=== PATIENT | male | born 1960 | race Caucasian/White ===

== ENCOUNTER 2020-02-05 10:05 | Inpatient (IN) | payer OTHER, SELFPAY ==
[2020-02-05] VITALS (13 sets, daily range): BP systolic 101–142; BP diastolic 47–83; PULSE 68–85; RESP 16–26; TEMP 36.6–38.2; O2SAT 90–100
--- NOTE | ~2020-02-05 | XR_ITS ---
EXAMINATION: XR chest 1V portable INDICATION: COVID pneumonia, shortness of breath TECHNIQUE: Portable AP chest at 0704 hours COMPARISON: 02/05/2020 FINDINGS: The lung volumes are low. There are unchanged diffuse opacities throughout all lung zones. There is no pleural effusion or pneumothorax. The cardiomediastinal silhouette is stable. IMPRESSION: 1. . Diffuse lung disease, consistent with pneumonia and/or pulmonary edema and/or acute respiratory distress syndrome (ARDS). Reviewed, dictated and finalized at location A. WIRE INSULATOR IMPRESSION: 1. . Diffuse lung disease, consistent with pneumonia and/or pulmonary edema and /or acute respiratory distress syndrome (ARDS).
--- NOTE | ~2020-02-05 | XR_ITS ---
EXAMINATION: XR chest 1V portable INDICATION: Shortness of breath, increasing oxygen needs TECHNIQUE: Portable AP chest at 0401 hours COMPARISON: 02/08/2020 FINDINGS: Diffuse airspace opacities persist throughout all lung zones with slight interval improveme nt. The lung volumes are low. The cardiomediastinal silhouette is normal. No pleural effusion or pneu mothorax is identified. IMPRESSION: 1. Diffuse lung disease with slight improvement, consistent with pneumonia and/or pulmonary edema and /or acute respiratory distress syndrome (ARDS). Reviewed, dictated and finalized at location A. ZAG SPRING MACHINE OPERATOR IMPRESSION: 1. Diffuse lung disease with slight improvement, consistent with pneumonia and/ or pulmonary edema and/or acute respiratory distress syndrome (ARDS).
--- NOTE | ~2020-02-05 | XR_ITS ---
EXAMINATION: XR chest 1V portable INDICATION: Shortness of breath, COVID 19 TECHNIQUE: Portable AP chest at 0523 hours COMPARISON: 02/07/2020 FINDINGS: Diffuse airspace opacities persist throughout all lung zones with slight interval improveme nt. The lung volumes are low. There is no pleural effusion or pneumothorax. The cardiomediastinal pepper houette is normal. IMPRESSION: 1. Stable diffuse lung disease, consistent with pneumonia and/or pulmonary edema and/or acute respira tory distress syndrome (ARDS). Reviewed, dictated and finalized at location A. GATHERER IMPRESSION: 1. Stable diffuse lung disease, consistent with pneumonia and/or pulmonary nadya a and/or acute respiratory distress syndrome (ARDS).
--- NOTE | ~2020-02-05 | XR_ITS ---
EXAMINATION: XR chest 1V portable INDICATION: Shortness of breath, COVID positive TECHNIQUE: Portable AP chest at 1041 hours COMPARISON: 02/10/2019 FINDINGS: There are diffuse airspace opacities throughout all lung zones. No pleural effusion or pneu mothorax is identified. The cardiomediastinal silhouette is stable. The visualized osseous structures are unremarkable. IMPRESSION: 1. Diffuse airspace opacities throughout all lung zones, compatible with COVID 19 pneumonia. Reviewed, dictated and finalized at location A.
--- NOTE | ~2020-02-05 | XR_ITS ---
EXAMINATION: XR chest 1V portable INDICATION: Respiratory failure TECHNIQUE: Portable AP chest at 0549 hours COMPARISON: 02/09/2020 FINDINGS: Diffuse airspace opacities persist throughout all lung zones with worsening in the midlung zones. No pleural effusion or pneumothorax is identified. The cardiomediastinal silhouette is normal. The lung volumes are low. IMPRESSION: 1. Diffuse lung disease with worsening in the midlung zones, consistent with pneumonia and/or pulmona ry edema and/or acute respiratory distress syndrome (ARDS). Reviewed, dictated and finalized at location A. MOTIVE TECHNICIAN INSTRUCTOR IMPRESSION: 1. Diffuse lung disease with worsening in the midlung zones, consistent with pn eumonia and/or pulmonary edema and/or acute respiratory distress syndrome (ARDS ).
--- NOTE | ~2020-02-05 | XR_ITS ---
EXAMINATION: XR chest 1V portable INDICATION: Respiratory failure TECHNIQUE: Portable AP chest at 0530 hours COMPARISON: 02/10/2020 FINDINGS: Diffuse airspace opacities persist throughout all lung zones without significant change. Th ere is no pleural effusion or pneumothorax. The cardiomediastinal silhouette is normal. The lung volu mes remain low. IMPRESSION: 1. Stable diffuse lung disease, consistent with pneumonia and/or pulmonary edema and/or acute respira tory distress syndrome (ARDS). Reviewed, dictated and finalized at location A. CARE SALES EXECUTIVE IMPRESSION: 1. Stable diffuse lung disease, consistent with pneumonia and/or pulmonary nadya a and/or acute respiratory distress syndrome (ARDS).
[2020-02-05 11:11] LABS: Basophils Percent Auto 0.2 % (0.2-1.2); Hematocrit 28.9 % (42.0-52.0); Hemoglobin 9.8 g/dL (14.0-18.0); Immature Granulocyte Absolute 0.02 K/mm3 (0.00-0.031); Immature Granulocyte Percent A 0.4 % (0-0.5); Lymphocytes Absolute Auto 0.63 K/mm3 (0.9-3.2); Lymphocytes Percent Auto 12.8 % (18.3-44.2); Mean Corpuscular HGB Conc 33.9 g/dl (32-36); Mean Corpuscular Volume 100.3 fl (80-100); Mean Platelet Volume 9.9 fl (7.4-10.4); Monocytes Absolute Auto 0.5 K/mm3 (0.1-0.6); Monocytes Percent Auto 10.2 % (2.6-8.5); Neutrophils Absolute Auto 3.8 K/mm3 (1.3-6.7); Neutrophils Percent Auto 76.4 % (45.5-73.1); Platelet Count Result 173 k/mm3 (150-375); Red Blood Count 2.88 M/mm3 (4.6-6.20); Red Cell Distribution Width 14.5 % (11.5-14.5); White Blood Count 4.9 K/mm3 (4.5-10.0)
[2020-02-05 11:20] LABS: Prothrombin Time 12.9 Seconds (11.1-14.7)
[2020-02-05 11:21] LABS: Partial Thromboplastin Time 35.9 SECONDS (22.3-36.8)
[2020-02-05 11:24] LABS: Base Excess ABG 6.2 mEq/l (+/-2.0); Carboxyhemoglobin 0.2 % THb (0-2.0); Fractional Inspired Oxygen 100 %; HCO3 ABG 29.1 mEq/l (22.0-26.0); Methemoglobin ABG 0.5 %THb (0-1.5); Oxygen Content ABG 13.7 %vol (16.0-22.0); Oxygen Saturation ABG 90.8 % (95.0-100.0); Oxyhemoglobin 87.6 % THb (90.0-100.0); PCO2 ABG 35.6 mmHg (35.0-45.0); PO2 ABG 52.4 mmHg (80.0-100.0); PO2 FiO2 Ratio Arterial Blood 0.52 %; Reduced Hemoglobin 11.7 %THb (0-5.0); Total Hemoglobin 11.1 g/dL (12.0-18.0)
[2020-02-05 11:25] LABS: Lactic Acid Reflex 1.3 mmol/L (0.7-2.1)
[2020-02-05 11:26] LABS: Lactate Dehydrogenase 888 U/L (313-618)
[2020-02-05 11:27] LABS: Device NON-REBREATHER MASK; Modified Allen's Test Pass; Site Drawn RIGHT RADIAL
--- NOTE | 2020-02-05 11:42 | ED.GENADULT ---
HPI - General Adult General Chief complaint: Shortness of Breath/Dyspnea <PAPITO Ordonez Last Filed: 02/05/20 12:38> Stated complaint: lethargic/fever <PAPITO Ordonez Last Filed: 02/05/20 12:38> Time Seen by Provider: 02/05/20 10:16 <PAPITO Ordonez Last Filed: 02/05/20 12:38> Source: patient and EMS <PAPITO Ordonez Last Filed: 02/05/20 12:38> Mode of arrival: EMS <PAPITO Ordonez Last Filed: 02/05/20 12:38> Limitations: clinical condition <PAPITO Ordonez Last Filed: 02/05/20 12:38> History of Present Illness HPI narrative: Patient is a 60-year-old male who presents from shelter Covid positive brought in for weakness had half his dialysis treatment yesterday on arrival patient has not able to answer questions appropriately is oriented to self patient is a full code on arrival is coughing presents with oxygen on was placed on a nonrebreather by EMS due to hypoxemia. Patient on arrival is chronically ill-appearing and in no distress <PAPITO Ordonez Last Filed: 02/05/20 12:38> Related Data Home medications: Home Medications Medication Instructions Recorded Confirmed atorvastatin 02/05/20 02/05/20 docusate sodium PO 02/05/20 ergocalciferol (vitamin D2) 1,250 mcg PO WEEKLY 02/05/20 02/05/20 levothyroxine 02/05/20 losartan 02/05/20 polyethylene glycol 3350 [Miralax] 02/05/20 sevelamer carbonate 02/05/20 <PAPITO Ordonez Last Filed: 02/05/20 12:38> Allergies/adverse reactions: Allergies Allergy/AdvReac Type Severity Reaction Status Date / Time No Known Allergies Allergy Verified 02/05/20 11:32 <PAPITO Ordonez Last Filed: 02/05/20 12:38> Review of Systems Review of Systems: ROS unobtainable: Yes unobtainable due to medical condition <PAPITO Ordonez Last Filed: 02/05/20 12:38> PMFSH Past Medical History Medical History: Medical History Anxiety Arthritis Congestive heart failure COPD (chronic obstructive pulmonary disease) Depression <Andrew Chisholm PA-C - Last Filed: 02/05/20 12:38> Social History Social History: Social History (Updated 02/05/20 @ 12:33 by Andrew Chisholm PA-C) Smoking status: Smoker, status unknown <Andrew Chisholm PA-C - Last Filed: 02/05/20 12:38> Exam Narrative: Exam Narrative: GENERAL: ill-appearing, well-nourished, and in no acute distress. HEAD: Normocephalic, atraumatic. EYES: PERRLA and EOMI. ENT: Nares clear, no rhinorrhea or epistaxis. Mucous membranes moist. CHEST: Clear to auscultation. No respiratory distress. No wheezes rales or rhonchi HEART: Regular rate and rhythm. No murmur heard. Normal peripheral pulses. ABDOMEN: Soft, nontender, nondistended. EXTREMITIES: Normal range of motion. No edema. Okay thank you let us take some of this Bilateral BKA SKIN: Warm, dry, no rash. NEURO: No focal deficits. Alert and oriented to self. letter letter supposedly to ill-appearing <Andrew Chisholm PA-C - Last Filed: 02/05/20 12:38> Course Course Emergency Course: Patient will be placed in hospital due to COVID-19 oxygen requirements with pneumonia will be consulted by nephrology <Andrew Chisholm PA-C - Last Filed: 02/05/20 12:38> INSURANCE ADMINISTRATIVE ASSISTANT/PA Physician Supervision For this patient encounter, I reviewed the INSURANCE ADMINISTRATIVE ASSISTANT or PA documentation, treatment plan, and medical decision making; and I had qxif-nw-vady time with this patient. <Kenize Lozada MD - Last Filed: 02/05/20 12:12> Consultations Consultation #1: Discussed case with nephrology who will consult on patient as well as the hospitalist who has agreed to accept the patient <Andrew Chisholm PA-C - Last Filed: 02/05/20 12:38> Vital Signs Vital signs: Vital Signs Temperature 38.2 C H 02/05/20 10:15 Pulse Rate 83 02/05/20 10:15 Respiratory Rate 24 H 01/07
[2020-02-05 12:14] LABS: Alanine Aminotransferase 30 U/L (4-50); Alkaline Phosphatase 79 U/L (38-126); Anion Gap 12 mmol/L (8-16); Aspartate Amino Transferase 126 U/L (17-59); Bilirubin,Total 0.6 mg/dL (0.2-1.3); Blood Urea Nitrogen 45 mg/dL (9-20); CRP 30.8 mg/dL (<1.0); Calcium 8.2 mg/dL (8.4-10.2); Carbon Dioxide 37 mmol/L (22-30); Chloride 86 mmol/L (98-107); Estimated Glomerular Filt Rate 9; Glucose 155 mg/dL (75-110); Potassium 3.2 mmol/L (3.4-5.0); Sodium 135 mmol/L (137-145)
--- NOTE | 2020-02-05 13:18 | ECG_ITS ---
Measurements Intervals [place] Rate: 84 P: 4 IL: 158 QRS: -29 QRSD: 94 T: -15 QT: 385 QTc: 457 Interpretive Statements SINUS RHYTHM VENTRICULAR PREMATURE COMPLEX BORDERLINE ST-T WAVE ABNORMALITY- INF/HIGH LAT LEADS BASELINE ARTIFACT- I, II, III, AVR, AVL, AVF, V1-V6 BORDERLINE ECG Electronically Signed On 02-05-2020 13:49:24 CDT by Pancho Carvajal D.O.
--- NOTE | 2020-02-05 13:40 | PC.NURSE ---
Pt admitted to room ICU 6 from ED, no belongings sent with patient. Pt oriented to ICU room, alert to self only. VSS, sats 95% on 5L NC. Droplet precautions maintained.
[2020-02-05 16:54] LABS: Glucose Point of Care 117 (65-105)
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
[2020-02-05] MEDS: DEXAMETHASONE SOD PHOS INJ 4 MG/ML VIAL 6 MG IV PUSH (17:58)
[2020-02-05] MEDS: HEPARIN SODIUM 5,000 UNITS/ML VIAL 5000 UNITS SUB-Q (21:10)
[2020-02-05] MEDS: FAMOTIDINE 20 MG/2 ML VIAL IV PUSH (21:10)
[2020-02-05 21:23] LABS: Glucose Point of Care 179 (65-105)
[2020-02-06] VITALS (14 sets, daily range): BP systolic 113–142; BP diastolic 49–96; PULSE 60–86; RESP 17–26; TEMP 36.6–36.8; O2SAT 88–99
[2020-02-06 05:08] LABS: Basophils Percent Auto 0.2 % (0.2-1.2); Hematocrit 27.9 % (42.0-52.0); Hemoglobin 9.2 g/dL (14.0-18.0); Immature Granulocyte Absolute 0.03 K/mm3 (0.00-0.031); Immature Granulocyte Percent A 0.5 % (0-0.5); Lymphocytes Absolute Auto 0.59 K/mm3 (0.9-3.2); Lymphocytes Percent Auto 10.6 % (18.3-44.2); Mean Corpuscular Hemoglobin 32.9 pg (26-34); Mean Corpuscular Volume 99.6 fl (80-100); Mean Platelet Volume 10.1 fl (7.4-10.4); Monocytes Absolute Auto 0.3 K/mm3 (0.1-0.6); Monocytes Percent Auto 5.7 % (2.6-8.5); Neutrophils Absolute Auto 4.6 K/mm3 (1.3-6.7); Platelet Count Result 196 k/mm3 (150-375); Red Cell Distribution Width 14.3 % (11.5-14.5); White Blood Count 5.6 K/mm3 (4.5-10.0)
[2020-02-06] MEDS: LEVOTHYROXINE SODIUM 25 MCG TABLET PO (05:13)
[2020-02-06 05:27] LABS: D Dimer 2.18 ug/mL (<0.48)
[2020-02-06 05:40] LABS: Anion Gap 15 mmol/L (8-16); Blood Urea Nitrogen 60 mg/dL (9-20); Calcium 7.6 mg/dL (8.4-10.2); Carbon Dioxide 34 mmol/L (22-30); Chloride 85 mmol/L (98-107); Estimated Glomerular Filt Rate 7; Glucose 270 mg/dL (75-110); Lactate Dehydrogenase 836 U/L (313-618); Potassium 3.5 mmol/L (3.4-5.0); Sodium 134 mmol/L (137-145)
[2020-02-06 06:27] LABS: CRP 34.8 mg/dL (<1.0)
[2020-02-06 06:29] LABS: Hemoglobin A1C 7.1 % (<5.7)
[2020-02-06] MEDS: DEXAMETHASONE SOD PHOS INJ 4 MG/ML VIAL 6 MG IV PUSH (07:49)
[2020-02-06] MEDS: FAMOTIDINE 20 MG/2 ML VIAL IV PUSH ×2 (07:49→20:16)
[2020-02-06] MEDS: HEPARIN SODIUM 5,000 UNITS/ML VIAL 5000 UNITS SUB-Q ×2 (07:50→20:15)
[2020-02-06] MEDS: LOSARTAN POTASSIUM 25 MG TABLET PO (07:50)
[2020-02-06] MEDS: SEVELAMER CARBONATE 800 MG TABLET PO ×3 (07:50→17:11)
[2020-02-06] MEDS: polyethylene glycoL 3350 17 GM POWD.PACK PO (07:50)
[2020-02-06] MEDS: DOCUSATE SODIUM 100 MG CAPSULE PO (07:50)
[2020-02-06] MEDS: ATORVASTATIN 40 MG TABLET PO (07:50)
[2020-02-06 08:46] LABS: Ferritin > 2000.00 ng/mL (11.1-264)
[2020-02-06] MEDS: INSULIN ASPART (*BKC) 100 UNITS/ML SUB-Q ×3 (08:55→17:10)
[2020-02-06 09:13] LABS: Glucose Point of Care 257 (65-105)
--- NOTE | 2020-02-06 09:48 | PM.CNNEP ---
Assessment and Plan Assessment and plan (1) End-stage renal disease on hemodialysis: Code(s): N18.6 - End stage renal disease; Z99.2 - Dependence on renal dialysis Status: Acute Assessment and Plan: the patient is end-stage renal disease. He is due for dialysis tomorrow. Will try to keep as much fluid off as possible to maintain oxygen saturations PICC (2) Acute respiratory failure with hypoxia: Code(s): J96.01 - Acute respiratory failure with hypoxia Status: Acute Assessment and Plan: patient has hypoxia. He is on high-flow oxygen. (3) Pneumonia due to COVID-19 virus: Code(s): U07.1 - COVID-19; J12.89 - Other viral pneumonia Status: Acute Assessment and Plan: The patient has COVID-19. He is getting Dexamethasone. He is on oxygen and supportive care. (4) Type 2 diabetes mellitus: Code(s): E11.9 - Type 2 diabetes mellitus without complications Status: Acute Assessment and Plan: He is getting Accu-Cheks and sliding-scale insulin (5) Hypothyroidism: Code(s): E03.9 - Hypothyroidism, unspecified Status: Acute Assessment and Plan: he is on levothyroxine (6) Hypertension: Code(s): I10 - Essential (primary) hypertension Status: Acute Assessment and Plan: blood pressure is under good control with his current medications (7) Erythropoietin deficiency anemia: Code(s): D63.1 - Anemia in chronic kidney disease Status: Acute Assessment and Plan: he will get Epogen. History of Present Illness Reason for Consult Consult date: 02/06/20 Chief Complaint Chief complaint: Increasing shortness of breath, COVID positive. History of Present Illness Narrative: Pedro is a very pleasant 60-year-old gentleman who has end-stage renal disease on dialysis 3 times a week, cognitive to impairment, hypothyroidism, hypertension, vitamin-D deficiency, renal osteodystrophy on binders, who recently acquired COVID. He lives in a detention where it is rampant. He was on a COVID positive shift for his dialysis as an outpatient. On Friday he would not keep is mask on. He did not have shortness of breath or cough at the time however. So they cut his treatment short and were going to bring him back to a shift or he could be isolation On Friday. However yesterday the patient developed some Hypoxia apparently. so the detention sent him to the emergency room. In the ER he was hypoxic. He was given some oxygen he was placed in the ICU for closer observation. He is actually on the IMU service. The patient is awake. He says he is not short of breath and is not coughing. However he has high-flow oxygen on. The nurse tells me that his oxygen saturation drops to the 70s if the oxygen comes off. Review of Systems Constitutional: Constitutional: Reports no additional constitutional complaints Eyes: Eyes: Reports no additional eye complaints ENT: Reports system reviewed and no additional complaints, except as documented Cardiovascular: Cardiovascular: Reports no additional cardiovascular complaints Respiratory: Respiratory: Reports no additional respiratory complaints Gastrointestinal: Gastrointestinal: Reports no additional gastrointestinal complaints Genitourinary: Genitourinary: Reports no additional male genitourinary complaints Musculoskeletal: Musculoskeletal: Reports no additional musculoskeletal complaints Integumentary/Breasts: Skin/Breast: Reports system reviewed and no additional complaints, except as docu Neurologic: Reports system reviewed and no additional complaints, except as documented Psychiatric: Psychiatric: Reports no additional psychiatric complaints Endocrine: Endocrine: Reports no additional endocrine complaints REPLACED BY [facility] Past Medical History Medical History Anxiety Arthritis Cerebrovascular accident (~08/2015) Chron
[2020-02-06 15:48] LABS: Glucose Point of Care 290 (65-105)
--- NOTE | 2020-02-06 16:36 | PM.IMPN ---
Progress Note: A&P Assessment and Plan (1) Pneumonia due to COVID-19 virus: Code(s): U07.1 - COVID-19; J12.89 - Other viral pneumonia Status: Acute (2) Acute respiratory failure with hypoxia: Code(s): J96.01 - Acute respiratory failure with hypoxia Status: Acute (3) End-stage renal disease on hemodialysis: Code(s): N18.6 - End stage renal disease; Z99.2 - Dependence on renal dialysis Status: Acute (4) Hypothyroidism: Code(s): E03.9 - Hypothyroidism, unspecified Status: Acute (5) Hyperlipidemia: Code(s): E78.5 - Hyperlipidemia, unspecified Status: Acute (6) Type 2 diabetes mellitus: Code(s): E11.9 - Type 2 diabetes mellitus without complications Status: Acute (7) Hypertension: Code(s): I10 - Essential (primary) hypertension Status: Acute (8) Anemia: Code(s): D64.9 - Anemia, unspecified Status: Acute (9) DVT prophylaxis: Code(s): Z29.9 - Encounter for prophylactic measures, unspecified Status: Acute Additional Plan :: 02/05/20:: The patient was admitted to the hospitalist service for further treatment of acute respiratory failure with hypoxia secondary to COVID pneumonia. Given increasing oxygen requirements he will be started on dexamethasone. Convalescent plasma also ordered given his comorbidities. He is not a candidate for remdesivir given end-stage renal disease. Nephrology consulted for dialysis. Blood pressures were reviewed and they are well controlled. He was previously on oral hypoglycemics do not see those listed at this time, thus will check hemoglobin A1c. Initiate sliding scale insulin, Accu-Cheks, and hypoglycemic protocol. Continue levothyroxine and check TSH. The rest of his home medications will be reviewed and resumed as appropriate. :: 02/06/20:: The patient had convalescent plasma ordered but unable to find family to consent for this. COntinue Decadron. Appreciate Nephrology input. Follow inflammatory markers. HD planned for tomorrow. A1c 7.1, TSH normal. Glucose elevated related to the steroids. Add levemir tonight. Follow LFTs Subjective Date/time seen: 02/06/20 16:36 Interval history: Date of service: 02/05 60yo male with hx of TBI and cognitive impairment, DM, and ESRD who is COVID+ here for increasing SOB. Pateint is alert but has cognitive issues and thus has difficult providing hx. Review of Systems Review of Systems: ROS unobtainable: Yes unobtainable due to medical condition Exam Narrative: Exam Narrative: Tm 100.2 97.8 113/96 79 21 90% HFNC Gen - NARD sitting up in bed Chest - distnat BS anteriorly, nml RR CV - RRR S1/S2; Tele showing no significant dysrhythmias Abd - Soft, NT/ND, Positive BS Ext - bilateral BKAs; stumps are clean and dry and intact Neuro - Alert; dysarhtric speech Psych - seems distracted, doesn't answer questions. Skin - Warm and dry Objective Data Vital Signs Vital Signs: Vital Signs - 24 hr 02/05/20 17:56 02/05/20 18:00 02/05/20 20:00 Temperature 100.2 F H Pulse Rate 72 72 79 Respiratory Rate 23 H 17 Blood Pressure 124/47 L 117/53 L Pulse Oximetry 95 95 02/05/20 20:34 02/05/20 22:00 02/06/20 00:00 Temperature 98.2 F Pulse Rate 80 80 70 Respiratory Rate 26 H 18 18 Blood Pressure 139/60 115/56 L Pulse Oximetry 93 96 99 02/06/20 02:00 02/06/20 04:00 02/06/20 06:00 Temperature Pulse Rate 64 68 66 Respiratory Rate 18 21 H 19 Blood Pressure 115/64 121/49 L Pulse Oximetry 96 88 L 98 02/06/20 08:00 02/06/20 09:40 02/06/20 10:00 Temperature 97.8 F Pulse Rate 70 69 70 Respiratory Rate 17 21 H 18 Blood Pressure 121/62 116/53 L Pulse Oximetry 90 98 90 02/06/20 12:00 02/06/20 14:00 Temperature Pulse Rate 73 79 Respiratory Rate 21 H Blood Pressure 113/96 H Pulse Oximetry 90 Intake/Output Intake/Output: Intake & Output 02/03/20 02/04/20 02/05/20 02/06/20 23:59 23:59 23:59
[2020-02-06 17:06] LABS: Glucose Point of Care 325 (65-105)
[2020-02-06] MEDS: INSULIN DETEMIR 100 UNITS/ML 8 UNITS SUB-Q (20:16)
[2020-02-06 20:26] LABS: Glucose Point of Care 288 (65-105)
[2020-02-07] VITALS (32 sets, daily range): BP systolic 115–158; BP diastolic 62–91; PULSE 70–90; RESP 18–31; TEMP 37–37.7; O2SAT 92–96
[2020-02-07] MEDS: LEVOTHYROXINE SODIUM 25 MCG TABLET PO (05:04)
[2020-02-07 05:31] LABS: Basophils Percent Auto 0.1 % (0.2-1.2); Hematocrit 27.5 % (42.0-52.0); Hemoglobin 9.5 g/dL (14.0-18.0); Immature Granulocyte Absolute 0.07 K/mm3 (0.00-0.031); Immature Granulocyte Percent A 0.5 % (0-0.5); Lymphocytes Absolute Auto 0.52 K/mm3 (0.9-3.2); Lymphocytes Percent Auto 3.7 % (18.3-44.2); Mean Corpuscular HGB Conc 34.5 g/dl (32-36); Mean Corpuscular Hemoglobin 33.3 pg (26-34); Mean Corpuscular Volume 96.5 fl (80-100); Mean Platelet Volume 9.9 fl (7.4-10.4); Monocytes Absolute Auto 0.6 K/mm3 (0.1-0.6); Monocytes Percent Auto 4.1 % (2.6-8.5); Neutrophils Absolute Auto 12.7 K/mm3 (1.3-6.7); Neutrophils Percent Auto 91.6 % (45.5-73.1); Platelet Count Result 209 k/mm3 (150-375); Red Blood Count 2.85 M/mm3 (4.6-6.20); Red Cell Distribution Width 13.8 % (11.5-14.5); White Blood Count 13.9 K/mm3 (4.5-10.0)
[2020-02-07 05:49] LABS: Alanine Aminotransferase 23 U/L (4-50); Albumin Level 3.4 g/dL (3.5-5.1); Alkaline Phosphatase 72 U/L (38-126); Anion Gap 16 mmol/L (8-16); Aspartate Amino Transferase 58 U/L (17-59); Bilirubin,Total 0.5 mg/dL (0.2-1.3); Blood Urea Nitrogen 81 mg/dL (9-20); Calcium 7.3 mg/dL (8.4-10.2); Carbon Dioxide 31 mmol/L (22-30); Chloride 85 mmol/L (98-107); Estimated Glomerular Filt Rate 6; Glucose 261 mg/dL (75-110); Lactate Dehydrogenase 750 U/L (313-618); Magnesium 2.5 mg/dL (1.6-2.3); Phosphorus 5.3 mg/dL (2.5-4.5); Potassium 3.2 mmol/L (3.4-5.0); Sodium 132 mmol/L (137-145)
[2020-02-07 05:57] LABS: CRP 19.3 mg/dL (<1.0)
[2020-02-07 07:43] LABS: Ferritin > 2000.00 ng/mL (11.1-264)
[2020-02-07] MEDS: SODIUM CHLORIDE 0.9% IV 1,000 ML 999 ML IV CONT (09:12)
[2020-02-07] MEDS: HEPARIN SODIUM 1,000 UNITS/ML VIAL 1000 UNITS IV PUSH (09:13)
[2020-02-07] MEDS: HEPARIN SODIUM 1,000 UNITS/ML VIAL 500 UNITS IV PUSH (09:13)
--- NOTE | 2020-02-07 09:25 | PM.IMPN ---
Progress Note: A&P Assessment and Plan (1) Pneumonia due to COVID-19 virus: Code(s): U07.1 - COVID-19; J12.89 - Other viral pneumonia Status: Acute Assessment and Plan: . (2) Acute respiratory failure with hypoxia: Code(s): J96.01 - Acute respiratory failure with hypoxia Status: Acute Assessment and Plan: . (3) End-stage renal disease on hemodialysis: Code(s): N18.6 - End stage renal disease; Z99.2 - Dependence on renal dialysis Status: Acute Assessment and Plan: . (4) Hypothyroidism: Code(s): E03.9 - Hypothyroidism, unspecified Status: Acute Assessment and Plan: . (5) Hyperlipidemia: Code(s): E78.5 - Hyperlipidemia, unspecified Status: Acute Assessment and Plan: . (6) Type 2 diabetes mellitus: Code(s): E11.9 - Type 2 diabetes mellitus without complications Status: Acute Assessment and Plan: . (7) Hypertension: Code(s): I10 - Essential (primary) hypertension Status: Acute Assessment and Plan: . (8) Anemia: Code(s): D64.9 - Anemia, unspecified Status: Acute Assessment and Plan: . (9) Cognitive impairment: Code(s): R41.89 - Other symptoms and signs involving cognitive functions and awareness Status: Acute (10) DVT prophylaxis: Code(s): Z29.9 - Encounter for prophylactic measures, unspecified Status: Acute Assessment and Plan: Heparin Additional Plan :: 02/05/20:: The patient was admitted to the hospitalist service for further treatment of acute respiratory failure with hypoxia secondary to COVID pneumonia. Given increasing oxygen requirements he will be started on dexamethasone. Convalescent plasma also ordered given his comorbidities. He is not a candidate for remdesivir given end-stage renal disease. Nephrology consulted for dialysis. Blood pressures were reviewed and they are well controlled. He was previously on oral hypoglycemics do not see those listed at this time, thus will check hemoglobin A1c. Initiate sliding scale insulin, Accu-Cheks, and hypoglycemic protocol. Continue levothyroxine and check TSH. The rest of his home medications will be reviewed and resumed as appropriate. :: 02/06/20:: The patient had convalescent plasma ordered but unable to find family to consent for this. COntinue Decadron. Appreciate Nephrology input. Follow inflammatory markers. HD planned for tomorrow. A1c 7.1, TSH normal. Glucose elevated related to the steroids. Add levemir tonight. Follow LFTs :: 02/07/20:: The patient is stable but still requiring excess amounts of O2. CXR remains unchanged. He is high risk for progression and unable to give him remdesivir. Will okay for the emergency use for the convalescent plasma. LDH and CRP better (Ferritin still >2000 so unclear if this has improved). LFTs better. Continue Decadron Day 3. Levemir started last night but will advance today given the glucose still elevated at 261. Continue HD per his schedule of . BP well controlled. WBC elevated now but felt related to the steroids. Wean o2 as tolerated Subjective Date/time seen: 02/07/20 09:25 Interval history: Date of service: 02/06 60yo male with hx of TBI and cognitive impairment, DM, and ESRD who is COVID+ here for increasing SOB. No problems overnight per RN. patient is alert but unable to provide hx. RN states they have tried multiple times to contact the family to obtain consent for the convalescent plasma without success. Patietn swaithced to HFNC which he seems to tolerate better. Review of Systems Review of Systems: ROS unobtainable: Yes unobtainable due to mental status Exam Narrative: Exam Narrative: AF 98.6 136/70 74 26 95% 10L HFNC Gen - NARD lying semi-recumbent in bed currently having HD. Chest - inspiratory crackles appreciated in the flanks. CV - RRR S1/S2 Abd - Soft,
[2020-02-07] MEDS: EPOETIN ALFA-EPBX 10,000 UNITS/ML VIAL 10000 UNITS IV PUSH (09:27)
[2020-02-07] MEDS: SODIUM CHLORIDE 0.9% IV 250 ML 30 ML IV CONT (09:40)
--- NOTE | 2020-02-07 10:32 | PM.PNNEP ---
Progress Note: A&P Assessment and Plan (1) End-stage renal disease on hemodialysis: Code(s): N18.6 - End stage renal disease; Z99.2 - Dependence on renal dialysis Status: Acute Assessment and Plan: the patient is end-stage renal disease. he is getting dialysis now. Remove fluid as tolerated (2) Acute respiratory failure with hypoxia: Code(s): J96.01 - Acute respiratory failure with hypoxia Status: Acute Assessment and Plan: patient has hypoxia. He is on a little less oxygen. (3) Pneumonia due to COVID-19 virus: Code(s): U07.1 - COVID-19; J12.89 - Other viral pneumonia Status: Acute Assessment and Plan: The patient has COVID-19. He is getting Dexamethasone. He is on oxygen and supportive care. (4) Type 2 diabetes mellitus: Code(s): E11.9 - Type 2 diabetes mellitus without complications Status: Acute Assessment and Plan: He is getting Accu-Cheks and sliding-scale insulin (5) Hypothyroidism: Code(s): E03.9 - Hypothyroidism, unspecified Status: Acute Assessment and Plan: he is on levothyroxine (6) Hypertension: Code(s): I10 - Essential (primary) hypertension Status: Acute Assessment and Plan: blood pressure is under good control with his current medications (7) Erythropoietin deficiency anemia: Code(s): D63.1 - Anemia in chronic kidney disease Status: Acute Assessment and Plan: He is on EPO. Subjective Date/time seen: 02/07/20 10:32 Interval history: Patient is alert. He seems like he feels a little better. He is on a little less oxygen. He is on dialysis now and tolerating it well. His blood pressure is doing well. He was seen at 10:20 a.m. Review of Systems Cardiovascular: Cardiovascular: Reports no additional cardiovascular complaints Respiratory: Respiratory: Reports no additional respiratory complaints Gastrointestinal: Gastrointestinal: Reports no additional gastrointestinal complaints Genitourinary: Genitourinary: Reports no additional male genitourinary complaints Exam Narrative: Exam Narrative: WDWN in NAD skin no rash head ncat lungs minimally coarse at the bases cor reg no rub abd BS+ nontender and soft ext no edema. Objective Data Vital Signs Vital Signs: Vital Signs - 24 hr 02/06/20 12:00 02/06/20 14:00 02/06/20 16:00 Temperature 36.6 C Pulse Rate 73 74 75 Respiratory Rate 21 H 26 H Blood Pressure 113/96 H 142/64 H Pulse Oximetry 90 89 L 02/06/20 18:00 02/06/20 19:56 02/06/20 20:00 Temperature 36.7 C Pulse Rate 72 71 60 Respiratory Rate 21 H 22 H Blood Pressure 125/63 Pulse Oximetry 94 93 02/06/20 22:00 02/07/20 00:00 02/07/20 02:00 Temperature Pulse Rate 70 70 73 Respiratory Rate 24 H Blood Pressure 135/66 Pulse Oximetry 95 02/07/20 03:05 02/07/20 04:00 02/07/20 06:00 Temperature Pulse Rate 74 76 Respiratory Rate 22 H Blood Pressure 136/65 Pulse Oximetry 95 95 02/07/20 08:00 02/07/20 08:22 02/07/20 08:56 Temperature 37.0 C Pulse Rate 73 72 76 Respiratory Rate 26 H 26 H Blood Pressure 130/73 130/73 144/72 H Pulse Oximetry 94 95 02/07/20 09:15 02/07/20 09:30 02/07/20 09:38 Temperature 37.0 C Pulse Rate 74 78 84 Respiratory Rate 23 H Blood Pressure 136/70 135/71 135/71 Pulse Oximetry 92 02/07/20 09:45 02/07/20 10:00 02/07/20 10:15 Temperature 37.2 C Pulse Rate 87 78 75 Respiratory Rate 23 H Blood Pressure 158/78 H 139/62 144/67 H Pulse Oximetry 93 02/07/20 10:30 Temperature Pulse Rate 77 Respiratory Rate Blood Pressure 144/67 H Pulse Oximetry Intake/Output Intake/Output: Intake & Output 02/05/20 02/06/20 02/06/20 02/07/20 00:59 00:59 23:59 23:59 Intake Total 480 Output Total Balance 480 Meds/Results Medications: Active Medications Generic Name Dose Route Start Last Admin Trade Name Freq
[2020-02-07] MEDS: INSULIN DETEMIR 100 UNITS/ML 12 UNITS SUB-Q ×2 (12:59→20:13)
[2020-02-07] MEDS: LOSARTAN POTASSIUM 25 MG TABLET PO (13:01)
[2020-02-07] MEDS: HEPARIN SODIUM 5,000 UNITS/ML VIAL 5000 UNITS SUB-Q ×2 (13:01→20:14)
[2020-02-07] MEDS: DEXAMETHASONE SOD PHOS INJ 4 MG/ML VIAL 6 MG IV PUSH (13:02)
[2020-02-07] MEDS: polyethylene glycoL 3350 17 GM POWD.PACK PO (13:02)
[2020-02-07] MEDS: FAMOTIDINE 20 MG/2 ML VIAL IV PUSH ×2 (13:17→20:14)
[2020-02-07] MEDS: INSULIN ASPART (*BKC) 100 UNITS/ML SUB-Q (16:59)
[2020-02-07 17:07] LABS: Glucose Point of Care 273 (65-105)
[2020-02-07 17:38] LABS: Glucose Point of Care 146 (65-105)
[2020-02-07 20:59] LABS: Glucose Point of Care 359 (65-105)
[2020-02-08] VITALS (17 sets, daily range): BP systolic 124–165; BP diastolic 63–80; PULSE 59–83; RESP 18–24; TEMP 35.8–37.2; O2SAT 84–98
[2020-02-08 06:09] LABS: Hematocrit 32.4 % (42.0-52.0); Hemoglobin 10.9 g/dL (14.0-18.0); Mean Corpuscular HGB Conc 33.6 g/dl (32-36); Mean Corpuscular Hemoglobin 33.9 pg (26-34); Mean Corpuscular Volume 100.6 fl (80-100); Mean Platelet Volume 9.9 fl (7.4-10.4); Platelet Count Result 246 k/mm3 (150-375); Red Blood Count 3.22 M/mm3 (4.6-6.20); Red Cell Distribution Width 14.4 % (11.5-14.5); White Blood Count 14.5 K/mm3 (4.5-10.0)
[2020-02-08 06:44] LABS: Albumin Level 3.7 g/dL (3.5-5.1); Anion Gap 12 mmol/L (8-16); Blood Urea Nitrogen 65 mg/dL (9-20); CRP 20.7 mg/dL (<1.0); Calcium 8.8 mg/dL (8.4-10.2); Carbon Dioxide 37 mmol/L (22-30); Chloride 93 mmol/L (98-107); Estimated Glomerular Filt Rate 9; Glucose 204 mg/dL (75-110); Lactate Dehydrogenase 810 U/L (313-618); Phosphorus 2.2 mg/dL (2.5-4.5); Potassium 3.6 mmol/L (3.4-5.0); Sodium 142 mmol/L (137-145)
[2020-02-08] MEDS: SEVELAMER CARBONATE 800 MG TABLET PO (08:27)
[2020-02-08] MEDS: ATORVASTATIN 40 MG TABLET PO (08:27)
[2020-02-08] MEDS: LOSARTAN POTASSIUM 25 MG TABLET PO (08:27)
[2020-02-08] MEDS: polyethylene glycoL 3350 17 GM POWD.PACK PO (08:27)
[2020-02-08] MEDS: DEXAMETHASONE SOD PHOS INJ 4 MG/ML VIAL 6 MG IV PUSH (08:27)
[2020-02-08] MEDS: HEPARIN SODIUM 5,000 UNITS/ML VIAL 5000 UNITS SUB-Q ×2 (08:27→16:27)
[2020-02-08] MEDS: FAMOTIDINE 20 MG/2 ML VIAL IV PUSH ×2 (08:27→20:18)
[2020-02-08 08:49] LABS: Glucose Point of Care 136 (65-105)
[2020-02-08] MEDS: INSULIN DETEMIR 100 UNITS/ML 12 UNITS SUB-Q (08:53)
[2020-02-08 09:22] LABS: Ferritin > 2000.00 ng/mL (11.1-264)
--- NOTE | 2020-02-08 10:21 | PC.NURSE ---
Patient's oxygen saturations down to 80%. Oxygen increased to 10L high flow and respiratory called. Patient placed on 15L NRB along with high flow. Will continue to monitor.
--- NOTE | 2020-02-08 11:32 | PM.PNNEP ---
Progress Note: A&P Assessment and Plan (1) End-stage renal disease on hemodialysis: Code(s): N18.6 - End stage renal disease; Z99.2 - Dependence on renal dialysis Status: Acute Assessment and Plan: the patient is end-stage renal disease. HD tomorrow. (2) Acute respiratory failure with hypoxia: Code(s): J96.01 - Acute respiratory failure with hypoxia Status: Acute Assessment and Plan: patient has hypoxia. still on oxygen 10L/min (3) Pneumonia due to COVID-19 virus: Code(s): U07.1 - COVID-19; J12.89 - Other viral pneumonia Status: Acute Assessment and Plan: The patient has COVID-19. He is getting Dexamethasone. He is on oxygen and supportive care. (4) Type 2 diabetes mellitus: Code(s): E11.9 - Type 2 diabetes mellitus without complications Status: Acute Assessment and Plan: He is getting Accu-Cheks and sliding-scale insulin (5) Hypothyroidism: Code(s): E03.9 - Hypothyroidism, unspecified Status: Acute Assessment and Plan: he is on levothyroxine (6) Hypertension: Code(s): I10 - Essential (primary) hypertension Status: Acute Assessment and Plan: blood pressure is under good control with his current medications (7) Erythropoietin deficiency anemia: Code(s): D63.1 - Anemia in chronic kidney disease Status: Acute Assessment and Plan: He is on EPO. Subjective Date/time seen: 02/08/20 11:32 Interval history: pt is alert. feels okay still on oxygen Review of Systems Cardiovascular: Cardiovascular: Reports no additional cardiovascular complaints Respiratory: Respiratory: Reports no additional respiratory complaints Gastrointestinal: Gastrointestinal: Reports no additional gastrointestinal complaints Genitourinary: Genitourinary: Reports no additional male genitourinary complaints Exam Narrative: Exam Narrative: WDWN in NAD skin no rash head ncat lungs clear cor reg no rub abd BS+ nontender and soft ext no edema. Objective Data Vital Signs Vital Signs: Vital Signs - 24 hr 02/07/20 11:45 02/07/20 12:00 02/07/20 12:15 Temperature 37.1 C Pulse Rate 83 82 80 Respiratory Rate 22 H Blood Pressure 115/68 122/66 120/79 Pulse Oximetry 94 02/07/20 12:27 02/07/20 12:45 02/07/20 13:00 Temperature 37.1 C Pulse Rate 90 89 Respiratory Rate 26 H Blood Pressure 134/65 149/91 H Pulse Oximetry 93 95 02/07/20 14:00 02/07/20 14:45 02/07/20 15:51 Temperature Pulse Rate 81 84 Respiratory Rate 18 Blood Pressure Pulse Oximetry 96 95 02/07/20 16:00 02/07/20 18:00 02/07/20 20:00 Temperature 37.7 C H 37.1 C Pulse Rate 88 83 83 Respiratory Rate 23 H 31 H Blood Pressure 144/72 H 139/69 Pulse Oximetry 95 94 02/07/20 22:00 02/08/20 00:00 02/08/20 02:00 Temperature 37.1 C Pulse Rate 82 77 83 Respiratory Rate 18 21 H Blood Pressure 155/74 H Pulse Oximetry 94 90 02/08/20 04:00 02/08/20 06:00 02/08/20 08:00 Temperature 37.2 C 36.4 C L Pulse Rate 75 71 67 Respiratory Rate 24 H 24 H Blood Pressure 139/63 165/79 H Pulse Oximetry 94 90 02/08/20 09:32 02/08/20 10:00 02/08/20 10:15 Temperature Pulse Rate 73 Respiratory Rate Blood Pressure Pulse Oximetry 90 84 L 02/08/20 10:28 Temperature Pulse Rate Respiratory Rate Blood Pressure Pulse Oximetry 95 Intake/Output Intake/Output: Intake & Output 02/06/20 02/06/20 02/07/20 02/08/20 00:59 23:59 23:59 23:59 Intake Total 1180 170 Output Total 3000 Balance -1820 170 Meds/Results Medications: Active Medications Generic Name Dose Route Start Last Admin Trade Name Freq PRN Reason Stop Dose Admin Atorvastatin Calcium 40 mg 02/06/20 09:00 02/08/20 08:27 Atorvastatin 40 Mg Tablet PO 40 mg DAILY LAZARO Administration Dexamethasone Sodium Phosphate 6 mg 02/05/20 16:25 02/08/20 08:27 Dexamethasone Sod
[2020-02-08 11:56] LABS: Glucose Point of Care 166 (65-105)
--- NOTE | 2020-02-08 12:50 | PC.NURSE ---
Entered patient's room with lunch. Attempted to wake patient. Patient very lethargic but opens eyes to name. Dr. Nation called and updated on patient's condition. Stated he would order an ABG.
[2020-02-08 13:09] LABS: Fractional Inspired Oxygen 80 %; HCO3 ABG 28.4 mEq/l (22.0-26.0); Modified Allen's Test Pass; Oxygen Content ABG 15.1 %vol (16.0-22.0); Oxygen Saturation ABG 92.9 % (95.0-100.0); Oxyhemoglobin 89.4 % THb (90.0-100.0); PCO2 ABG 37.2 mmHg (35.0-45.0); PO2 ABG 59.3 mmHg (80.0-100.0); PO2 FiO2 Ratio Arterial Blood 0.74 %; Site Drawn RIGHT RADIAL
[2020-02-08 13:10] LABS: Device HIGH FLOW NASAL CANN
--- NOTE | 2020-02-08 16:00 | PM.IMPN ---
Progress Note: A&P Assessment and Plan (1) Pneumonia due to COVID-19 virus: Code(s): U07.1 - COVID-19; J12.89 - Other viral pneumonia Status: Acute Assessment and Plan: with chronic renal failure not a candidate for antiviral. Day 4. Of dexamethasone. Emergency use for con[facility]escent [facility] since family could not be a contacted . (2) Acute respiratory failure with hypoxia: Code(s): J96.01 - Acute respiratory failure with hypoxia Status: Acute Assessment and Plan: . secondary to COVID pneumonia continue above treatment (3) End-stage renal disease on hemodialysis: Code(s): N18.6 - End stage renal disease; Z99.2 - Dependence on renal dialysis Status: Acute Assessment and Plan: . chronic hemodialysis Friday the with repeat dialysis 02/08 (4) Hypothyroidism: Code(s): E03.9 - Hypothyroidism, unspecified Status: Acute Assessment and Plan: continue thyroid replacement . (5) Hyperlipidemia: Code(s): E78.5 - Hyperlipidemia, unspecified Status: Acute Assessment and Plan: continue statin recheck LFTs . (6) Type 2 diabetes mellitus: Code(s): E11.9 - Type 2 diabetes mellitus without complications Status: Acute Assessment and Plan: . A1c only 7.1 but with dexamethasone sugars have risen with fasting sugar today of 204 and will increase Levemir to 14 units Q 12 with sliding scale (7) Hypertension: Code(s): I10 - Essential (primary) hypertension Status: Acute Assessment and Plan: . (8) Anemia: Code(s): D64.9 - Anemia, unspecified Status: Acute Assessment and Plan: . chronic disease with his chronic renal failure (9) Cognitive impairment: Code(s): R41.89 - Other symptoms and signs involving cognitive functions and awareness Status: Acute Assessment and Plan: chronic can worsened due to COVID pneumonia and respiratory failure (10) DVT prophylaxis: Code(s): Z29.9 - Encounter for prophylactic measures, unspecified Status: Acute Assessment and Plan: Heparin and increased to Q 8 hours Subjective Date/time seen: 02/08/20 16:00 Interval history: Date of service: 02/07 60yo male with hx of TBI and cognitive impairment, DM, and ESRD who is COVID+ here for increasing SOB. No problems overnight per RN. patient is Drowsy but awakens to his name and falls back to sleep Exam Narrative: Exam Narrative: AF 98.6 150/70 60 22 96% 10L HFNC when he keeps it on Gen - NARD lying semi-recumbent in bed . Chest - inspiratory crackles appreciated in the flanks. CV - RRR S1/S2 Abd - Soft, ND. no guarding or rebound Ext - bilateral BKAs; stumps are clean; LUE fistula present Neuro - Alert; dysarthric speech Psych - hard to assess Skin - Warm and dry Objective Data Vital Signs Vital Signs: Vital Signs - 24 hr 02/07/20 18:00 02/07/20 20:00 02/07/20 22:00 Temperature 37.1 C Pulse Rate 83 83 82 Respiratory Rate 31 H 18 Blood Pressure 139/69 Pulse Oximetry 94 94 02/08/20 00:00 02/08/20 02:00 02/08/20 04:00 Temperature 37.1 C 37.2 C Pulse Rate 77 83 75 Respiratory Rate 21 H 24 H Blood Pressure 155/74 H 139/63 Pulse Oximetry 90 94 02/08/20 06:00 02/08/20 08:00 02/08/20 09:32 Temperature 36.4 C L Pulse Rate 71 67 Respiratory Rate 24 H Blood Pressure 165/79 H Pulse Oximetry 90 90 02/08/20 10:00 02/08/20 10:15 02/08/20 10:28 Temperature Pulse Rate 73 Respiratory Rate Blood Pressure Pulse Oximetry 84 L 95 02/08/20 10:45 02/08/20 12:00 02/08/20 14:00 Temperature 36.3 C L Pulse Rate 60 60 Respiratory Rate 20 Blood Pressure 150/71 H Pulse Oximetry 91 94 Intake/Output Intake/Output: Intake & Output 02/06/20 02/06/20 02/07/20 02/08/20 00:59 23:59 23:59 23:59 Intake Total 1180 170 Output Total 3000 Balance -1820 170 Meds/Resul
[2020-02-08 17:30] LABS: Glucose Point of Care 153 (65-105)
[2020-02-08 20:25] LABS: Glucose Point of Care 164 (65-105)
[2020-02-08] MEDS: INSULIN DETEMIR 100 UNITS/ML 14 UNITS SUB-Q (23:02)
[2020-02-09] VITALS (32 sets, daily range): BP systolic 75–180; BP diastolic 63–95; PULSE 65–107; RESP 22–45; TEMP 36.5–37.1; O2SAT 82–97
[2020-02-09] MEDS: HEPARIN SODIUM 5,000 UNITS/ML VIAL 5000 UNITS SUB-Q ×3 (02:05→17:53)
[2020-02-09] MEDS: LORazepam INJ (*CRX) 2 MG/ML VIAL 0.5 MG IV PUSH (02:21)
[2020-02-09 03:23] LABS: Alveolar/Arterial O2 Gradient 622.5 mmHg; Fractional Inspired Oxygen 100 %; HCO3 ABG 27.3 mEq/l (22.0-26.0); Oxygen Content ABG 15.6 %vol (16.0-22.0); Oxygen Saturation ABG 93.2 % (95.0-100.0); Oxyhemoglobin 90.4 % THb (90.0-100.0); PCO2 ABG 32.7 mmHg (35.0-45.0); PO2 ABG 57.8 mmHg (80.0-100.0); PO2 FiO2 Ratio Arterial Blood 0.58 %; Total Hemoglobin 12.3 g/dL (12.0-18.0)
[2020-02-09 03:25] LABS: Device HIGH FLOW THERAPY; Modified Allen's Test Pass; Site Drawn RIGHT RADIAL; pH ABG 7.539 (7.350-7.450)
[2020-02-09] MEDS: dexmedeTOMIDine 400 MCG/100 ML 400 MCG/100 ML BAG IV CONT (06:18)
[2020-02-09 06:25] LABS: Alanine Aminotransferase 38 U/L (4-50); Albumin Level 3.7 g/dL (3.5-5.1); Alkaline Phosphatase 97 U/L (38-126); Anion Gap 16 mmol/L (8-16); Aspartate Amino Transferase 56 U/L (17-59); Bilirubin,Total 0.7 mg/dL (0.2-1.3); Blood Urea Nitrogen 93 mg/dL (9-20); CRP 7.6 mg/dL (<1.0); Calcium 8.5 mg/dL (8.4-10.2); Carbon Dioxide 30 mmol/L (22-30); Chloride 95 mmol/L (98-107); Estimated Glomerular Filt Rate 7; Glucose 177 mg/dL (75-110); Lactate Dehydrogenase 947 U/L (313-618); Sodium 141 mmol/L (137-145)
[2020-02-09 06:44] LABS: Basophils Percent Auto 0.3 % (0.2-1.2); Hematocrit 33.7 % (42.0-52.0); Hemoglobin 11.1 g/dL (14.0-18.0); Immature Granulocyte Absolute 0.18 K/mm3 (0.00-0.031); Immature Granulocyte Percent A 1.6 % (0-0.5); Lymphocytes Absolute Auto 0.83 K/mm3 (0.9-3.2); Lymphocytes Percent Auto 7.5 % (18.3-44.2); Mean Corpuscular HGB Conc 32.9 g/dl (32-36); Mean Corpuscular Hemoglobin 33.2 pg (26-34); Mean Corpuscular Volume 100.9 fl (80-100); Mean Platelet Volume 9.6 fl (7.4-10.4); Monocytes Absolute Auto 0.8 K/mm3 (0.1-0.6); Monocytes Percent Auto 7.6 % (2.6-8.5); Neutrophils Absolute Auto 9.1 K/mm3 (1.3-6.7); Nucleated Red Blood Cells Perc 0.4 % (0.0-0.2); Platelet Count Result 278 k/mm3 (150-375); Red Blood Count 3.34 M/mm3 (4.6-6.20); Red Cell Distribution Width 14.3 % (11.5-14.5)
[2020-02-09 06:59] LABS: D Dimer 2.81 ug/mL (<0.48)
[2020-02-09] MEDS: DEXAMETHASONE SOD PHOS INJ 4 MG/ML VIAL 6 MG IV PUSH (08:32)
[2020-02-09] MEDS: FAMOTIDINE 20 MG/2 ML VIAL IV PUSH ×2 (08:32→20:08)
--- NOTE | 2020-02-09 08:51 | PM.PNNEP ---
Progress Note: A&P Assessment and Plan (1) End-stage renal disease on hemodialysis: Code(s): N18.6 - End stage renal disease; Z99.2 - Dependence on renal dialysis Status: Acute Assessment and Plan: the patient is end-stage renal disease. HD todxay. I called HD nurse and asked him to come soon. (2) Acute respiratory failure with hypoxia: Code(s): J96.01 - Acute respiratory failure with hypoxia Status: Acute Assessment and Plan: patient has hypoxia. now on high candace canula and NRB mask. discussed with Dr Pollock. worsening condition a combination of progression of covid plus atalectasis due to poor deep breathing (pt resists) and maybe fluid? will remove fluid as tolerated. (3) Pneumonia due to COVID-19 virus: Code(s): U07.1 - COVID-19; J12.89 - Other viral pneumonia Status: Acute Assessment and Plan: The patient has COVID-19. He is getting Dexamethasone. He is on oxygen and supportive care. (4) Type 2 diabetes mellitus: Code(s): E11.9 - Type 2 diabetes mellitus without complications Status: Acute Assessment and Plan: He is getting Accu-Cheks and sliding-scale insulin (5) Hypothyroidism: Code(s): E03.9 - Hypothyroidism, unspecified Status: Acute Assessment and Plan: he is on levothyroxine (6) Hypertension: Code(s): I10 - Essential (primary) hypertension Status: Acute Assessment and Plan: blood pressure is doing okay (7) Erythropoietin deficiency anemia: Code(s): D63.1 - Anemia in chronic kidney disease Status: Acute Assessment and Plan: He is on EPO. Subjective Date/time seen: 02/09/20 08:51 Interval history: pt is More tired. Not very interactive. On much more oxygen. Review of Systems Review of Systems: ROS unobtainable: Yes unobtainable due to medical condition Exam Narrative: Exam Narrative: WDWN in ICU and on more oxygen. skin no rash head ncat lungs coarse cor reg no rub abd BS+ nontender and soft ext no edema. Objective Data Vital Signs Vital Signs: Vital Signs - 24 hr 02/08/20 09:32 02/08/20 10:00 02/08/20 10:15 Temperature Pulse Rate 73 Respiratory Rate Blood Pressure Pulse Oximetry 90 84 L 11/03/20 10:28 02/08/20 10:45 02/08/20 12:00 Temperature 36.3 C L Pulse Rate 60 Respiratory Rate 20 Blood Pressure 150/71 H Pulse Oximetry 95 91 94 02/08/20 14:00 02/08/20 16:00 02/08/20 18:00 Temperature 35.8 C L Pulse Rate 60 63 59 L Respiratory Rate 20 Blood Pressure 137/73 Pulse Oximetry 98 02/08/20 20:00 02/08/20 22:00 02/08/20 23:14 Temperature 37.2 C Pulse Rate 70 75 Respiratory Rate 18 Blood Pressure 124/80 Pulse Oximetry 89 L 90 02/09/20 00:00 02/09/20 01:25 02/09/20 02:00 Temperature 36.9 C Pulse Rate 77 74 Respiratory Rate 22 H 34 H Blood Pressure 165/90 H Pulse Oximetry 91 85 L 02/09/20 04:00 02/09/20 06:00 02/09/20 06:18 Temperature 37.0 C Pulse Rate 82 69 74 Respiratory Rate 35 H 35 H Blood Pressure 180/72 H Pulse Oximetry 87 L Intake/Output Intake/Output: Intake & Output 02/06/20 02/07/20 02/08/20 02/09/20 23:59 23:59 23:59 23:59 Intake Total 1180 170 Output Total 3000 Balance -1820 170 Meds/Results Medications: Active Medications Generic Name Dose Route Start Last Admin Trade Name Freq PRN Reason Stop Dose Admin Atorvastatin Calcium 40 mg 02/06/20 09:00 02/09/20 08:28 Atorvastatin 40 Mg Tablet PO Not Given DAILY LAZARO Dexamethasone Sodium Phosphate 6 mg 02/05/20 16:25 02/09/20 08:32 Dexamethasone Sod Phos Inj 4 Mg/Ml Vial IV PUSH 02/14/20 09:01 6 mg DAILY LAZARO Administration Dextrose 12.5 gm 02/05/20 16:22 Dextrose 50% 25 Gm/50 Ml Syringe IV PUSH PRN PRN Hypoglycemia Protocol Docusate Sodium 100 mg 02/06/20 09:00 02/09/20 08:29 Docusate Sodium 100 Mg Caps
--- NOTE | 2020-02-09 09:06 | WPDCNINT ---
Assessment and Plan Assessment and plan (1) Acute respiratory failure with hypoxia: Code(s): J96.01 - Acute respiratory failure with hypoxia Status: Acute Assessment and Plan: Acute Respiratory failure secondary to COVID-19 pneumonia, possible component of pulmonary edema from end-stage renal disease, atelectasis CXR shows persistent Diffuse lung disease with slight improvement, consistent with pneumonia and/or pulmonary edema and/or acute respiratory distress syndrome (ARDS) patient currently on 90% FiO2 and 50 liter/minute flow on airvo along with a non-rebreather mask he may need intubation ABG and PCXR reviewed and will repeat in am. continue dexamethasone patient has already received plasma not a candidate for Remdesivir will discuss with nephrology regarding another hemodialysis session today to remove more fluid monitor inflammatory markers (2) Pneumonia due to COVID-19 virus: Code(s): U07.1 - COVID-19; J12.89 - Other viral pneumonia Status: Acute Assessment and Plan: see above (3) Encephalopathy: Code(s): G93.40 - Encephalopathy, unspecified Status: Acute Assessment and Plan: multifactorial. patient has baseline traumatic brain injury and has cognitive impairment and now worsen by medications and being sick. also delirium hold benzodiazepine patient currently on Precedex infusion will titrate (4) End-stage renal disease on hemodialysis: Code(s): N18.6 - End stage renal disease; Z99.2 - Dependence on renal dialysis Status: Acute Assessment and Plan: the patient is end-stage renal disease. will discuss with Nephrology regarding another hemodialysis session today (5) Type 2 diabetes mellitus: Code(s): E11.9 - Type 2 diabetes mellitus without complications Status: Acute Assessment and Plan: Sliding scale and Levemir (6) Hypothyroidism: Code(s): E03.9 - Hypothyroidism, unspecified Status: Acute Assessment and Plan: he is on levothyroxine (7) Hypertension: Code(s): I10 - Essential (primary) hypertension Status: Acute Assessment and Plan: blood pressure is adequately controlled control with his current medications (8) Erythropoietin deficiency anemia: Code(s): D63.1 - Anemia in chronic kidney disease Status: Acute Assessment and Plan: secondary to end-stage renal disease He is on EPO. Additional Plan DVT prophylaxis - subcu heparin Stress ulcer prophylaxis - Pepcid Code Status - Full Code . I tried contacting patient's sister Rebekah Godinez at [phone]. No one answered the phone and there is no voicemail set up on that phone number. I will discuss with primary care nurse practitioner. Total Critical Care Time -33 minutes Due to a high probability of clinically significant, life threatening deterioration, the patient required my highest level of preparedness to intervene emergently and I personally spent this critical care time directly and personally managing the patient. This critical care time included obtaining a history; examining the patient; pulse oximetry; ordering and review of studies; arranging urgent treatment with development of a management plan; evaluation of patient's response to treatment; frequent reassessment; and discussions with other providers. It was exclusive of separately billable procedures and treating other patients and teaching time. Please see Assessment and Plan section and the rest of the note for further information on patient assessment and treatment Technical Delivery Manager Consult Note Consult date: 02/09/20 Time Seen: 08:20 HPI: Pedro Godinez is a 60 year old male with past medical history of traumatic brain injury with chronic cognitive impairment, end-stage renal disease on hemodialysis, type 2 diabetes mellitus with peripheral neuropathy, peripheral vascular disease, diastolic dysfunction, anemia, and several other comorbidities who pre
[2020-02-09] MEDS: INSULIN DETEMIR 100 UNITS/ML 14 UNITS SUB-Q (10:44)
--- NOTE | 2020-02-09 13:25 | PM.IMPN ---
Progress Note: A&P Assessment and Plan (1) Pneumonia due to COVID-19 virus: Code(s): U07.1 - COVID-19; J12.89 - Other viral pneumonia Status: Acute Assessment and Plan: with chronic renal failure not a candidate for antiviral. Day 5. Of dexamethasone. convalescent plasma never given . (2) Acute respiratory failure with hypoxia: Code(s): J96.01 - Acute respiratory failure with hypoxia Status: Acute Assessment and Plan: . secondary to COVID pneumonia continue above treatment prognosis poor with new DNR status [facility] (3) End-stage renal disease on hemodialysis: Code(s): N18.6 - End stage renal disease; Z99.2 - Dependence on renal dialysis Status: Acute Assessment and Plan: . chronic hemodialysis Friday , with repeat dialysis today (4) Hypothyroidism: Code(s): E03.9 - Hypothyroidism, unspecified Status: Acute Assessment and Plan: continue thyroid replacement . (5) Hyperlipidemia: Code(s): E78.5 - Hyperlipidemia, unspecified Status: Acute Assessment and Plan: continue statin recheck LFTs . (6) Type 2 diabetes mellitus: Code(s): E11.9 - Type 2 diabetes mellitus without complications Status: Acute Assessment and Plan: . A1c only 7.1 but with dexamethasone sugars have risen and now in the 100s range with Levemir to 14 units Q 12 with sliding scale (7) Hypertension: Code(s): I10 - Essential (primary) hypertension Status: Acute Assessment and Plan: .bp fine off losartan (8) Anemia: Code(s): D64.9 - Anemia, unspecified Status: Acute Assessment and Plan: . chronic disease with his chronic renal failure (9) Cognitive impairment: Code(s): R41.89 - Other symptoms and signs involving cognitive functions and awareness Status: Acute Assessment and Plan: chronic can worsened due to COVID pneumonia and respiratory failure (10) DVT prophylaxis: Code(s): Z29.9 - Encounter for prophylactic measures, unspecified Status: Acute Assessment and Plan: Heparin Q 8 hours Subjective Date/time seen: 02/09/20 13:25 Interval history: Date of service: 02/08 60yo male with hx of TBI and cognitive impairment, DM, and ESRD who is COVID+ here for increasing SOB. Worsening sob and hypoxia over night and now max rx [facility] but POA decided DNR Exam Narrative: Exam Narrative: AF 98.6 130/78 72 26 95% flow rate 50 with FiO2 of 95% Gen - NARD lying semi-recumbent in bed . with addition of non-rebreather Chest - inspiratory crackles appreciated in the flanks. CV - RRR S1/S2 Abd - Soft, ND. no guarding or rebound Ext - bilateral BKAs; stumps are clean; LUE fistula present Neuro - now sedated on Precedex Psych - hard to assess Skin - Warm and dry Objective Data Vital Signs Vital Signs: Vital Signs - 24 hr 02/08/20 14:00 02/08/20 16:00 02/08/20 18:00 Temperature 35.8 C L Pulse Rate 60 63 59 L Respiratory Rate 20 Blood Pressure 137/73 Pulse Oximetry 98 02/08/20 20:00 02/08/20 22:00 02/08/20 23:14 Temperature 37.2 C Pulse Rate 70 75 Respiratory Rate 18 Blood Pressure 124/80 Pulse Oximetry 89 L 90 02/09/20 00:00 02/09/20 01:25 02/09/20 02:00 Temperature 36.9 C Pulse Rate 77 74 Respiratory Rate 22 H 34 H Blood Pressure 165/90 H Pulse Oximetry 91 85 L 02/09/20 04:00 02/09/20 06:00 02/09/20 06:18 Temperature 37.0 C Pulse Rate 82 69 74 Respiratory Rate 35 H 35 H Blood Pressure 180/72 H Pulse Oximetry 87 L 02/09/20 08:00 02/09/20 08:30 02/09/20 10:00 Temperature 36.5 C Pulse Rate 79 77 73 Respiratory Rate 28 H 28 H Blood Pressure 131/79 Pulse Oximetry 91 88 L Intake/Output Intake/Output: Intake & Output 02/06/20 02/07/20 02/08/20 02/09/20 23:59 23:59 23:59 23:59
[2020-02-09 13:49] LABS: Lactate Dehydrogenase 810 U/L (313-618)
--- NOTE | 2020-02-09 14:25 | PCDIET ---
ICU Rounding Note: Patient has not been taking oral diet for the past 24 hours due to increased oxygen requirements, per nursing. May need to consider enteral feeding if no improvement in the next few days. Last recorded weight is 68.6kg which is down from last review. Patient dialyzed on 02/07/20 with 3L UF. Bowel Motility: +BM on 02/08/20. Labs Reviewed: Hgb (11.1), Hct (33.7), Glu (177), BUN (93), Cr (7.8) Meds Noted: Decadron, Precedex, Retacrit, Drisdol, Pepcid, Levemir, Synthroid, Cozaar, Miralax, Renvela Additional Notes: No documented skin breakdown. Following daily in ICU rounds. Assessing/reassessing every 3 days.
[2020-02-09 15:40] LABS: Ferritin > 2000.00 ng/mL (11.1-264)
[2020-02-09 16:40] LABS: Glucose Point of Care 181 (65-105)
[2020-02-09 20:14] LABS: Glucose Point of Care 195 (65-105)
[2020-02-09 20:39] LABS: Glucose Point of Care 192 (65-105)
[2020-02-09] MEDS: EPOETIN ALFA-EPBX 10,000 UNITS/ML VIAL 10000 UNITS IV PUSH (22:37)
--- NOTE | 2020-02-09 23:18 | PC.NURSE ---
Pt on dialysis when patient 02 sats dropped. Assessment of the patient revealed decreased LOC, diaphoresis without fever and mottling of the lower extremity stumps. Pt not responding to stimuli. eMr Shea and Dr Lund on unit and made aware. Called sister Rebekah Godinez @ [phone] and confirmed DNR and DNI status. Sister declined invitation to see patient at this time. Dialysis terminated early due to change in status. Will continue to moniter.
[2020-02-10] VITALS (19 sets, daily range): BP systolic 84–163; BP diastolic 65–89; PULSE 60–104; RESP 24–52; TEMP 36.9–38.8; O2SAT 89–100
[2020-02-10 00:14] LABS: Glucose Point of Care 197 (65-105)
[2020-02-10] MEDS: SODIUM CHLORIDE 0.9% IV 250 ML IV CONT (00:40)
[2020-02-10] MEDS: INSULIN DETEMIR 100 UNITS/ML 14 UNITS SUB-Q ×3 (00:41→23:49)
[2020-02-10] MEDS: HEPARIN SODIUM 5,000 UNITS/ML VIAL 5000 UNITS SUB-Q ×3 (00:41→17:46)
[2020-02-10 00:42] LABS: Anion Gap 22 mmol/L (8-16); Blood Urea Nitrogen 71 mg/dL (9-20); Calcium 8.8 mg/dL (8.4-10.2); Carbon Dioxide 26 mmol/L (22-30); Chloride 95 mmol/L (98-107); Estimated Glomerular Filt Rate 10; Glucose 214 mg/dL (75-110); Magnesium 2.8 mg/dL (1.6-2.3); Sodium 143 mmol/L (137-145)
[2020-02-10] MEDS: MORPHINE SULFATE (*CRX) 2 MG/ML INJ IV PUSH (03:21)
[2020-02-10 03:39] LABS: Alanine Aminotransferase 76 U/L (4-50); Albumin Level 4.2 g/dL (3.5-5.1); Alkaline Phosphatase 113 U/L (38-126); Anion Gap 19 mmol/L (8-16); Aspartate Amino Transferase 111 U/L (17-59); Bilirubin,Total 0.8 mg/dL (0.2-1.3); Blood Urea Nitrogen 81 mg/dL (9-20); Carbon Dioxide 30 mmol/L (22-30); Chloride 96 mmol/L (98-107); Estimated Glomerular Filt Rate 8; Glucose 208 mg/dL (75-110); Magnesium 2.8 mg/dL (1.6-2.3); Sodium 145 mmol/L (137-145)
[2020-02-10 04:22] LABS: Hematocrit 39.5 % (42.0-52.0); Hemoglobin 13.2 g/dL (14.0-18.0); Mean Corpuscular HGB Conc 33.4 g/dl (32-36); Mean Corpuscular Hemoglobin 34.3 pg (26-34); Mean Corpuscular Volume 102.6 fl (80-100); Platelet Count Result 291 k/mm3 (150-375); Red Blood Count 3.85 M/mm3 (4.6-6.20); Red Cell Distribution Width 14.6 % (11.5-14.5); White Blood Count 18.4 K/mm3 (4.5-10.0)
[2020-02-10] MEDS: FAMOTIDINE 20 MG/2 ML VIAL IV PUSH ×2 (08:27→20:47)
[2020-02-10] MEDS: DEXAMETHASONE SOD PHOS INJ 4 MG/ML VIAL 6 MG IV PUSH (08:27)
[2020-02-10] MEDS: dexmedeTOMIDine 400 MCG/100 ML 400 MCG/100 ML BAG IV CONT (08:28)
[2020-02-10 09:44] LABS: Glucose Point of Care 190 (65-105)
--- NOTE | 2020-02-10 11:52 | PCDIET ---
Nutrition Follow-Up Complete: Nutrition Diagnosis: Suboptimal oral intake related to multiple medical issues as evidenced by recorded intakes of just above 50% of meals since admission. Nutrition Goal: Patient to consume 75% of meals/supplements or greater. Goal not met. Patient not currently appropriate for oral diet. Recommend clarification of NPO status at this time. MD discussing plan of care with patient's family. If aggressive nutritional therapy is desired, may need to consider tube feedings in the upcoming days. Last recorded weight is 67.1 kg which is down from last review. -I/O. Bowel Motility: Last documented BM on 02/08/20. Labs Reviewed: Hgb (13.2), Hct (39.5), Glu (208), BUN (81), Cr (7.1) Meds Noted: Lipitor, Decadron, Precedex, Levemir, Retacrit, Drisdol, Pepcid, Heparin, Novolog, Synthroid, Cozaar Additional Notes: Skin mottled, per integumentary notes. Will continue to monitor. Nutrition Monitoring and Evaluation: Follow up every 3 days.
[2020-02-10] MEDS: ACETAMINOPHEN 650 MG SUPPOSITORY RECTAL (12:00)
--- NOTE | 2020-02-10 12:35 | PM.PNNEP ---
Progress Note: A&P Assessment and Plan (1) End-stage renal disease on hemodialysis: Code(s): N18.6 - End stage renal disease; Z99.2 - Dependence on renal dialysis Status: Acute Assessment and Plan: the patient has end-stage renal disease. he had 2 hours of dialysis last night, at the end of which he became hemodynamically unstable with a blood pressure in the 70s, heart rate above 100, and respiratory rate above 50. The dialysis was stopped at that point. Today the patient does not seem to have any fluid on, at least no swelling. He was so unstable with the dialysis last night I think we should wait on doing hemodialysis today and will do it tomorrow. His electrolytes are okay overall prognosis is very poor. His sister is coming in to visit today apparently. discussed with Dr. Pollock (2) Acute respiratory failure with hypoxia: Code(s): J96.01 - Acute respiratory failure with hypoxia Status: Acute Assessment and Plan: patient has hypoxia. now on high flow canula and NRB mask. (3) Pneumonia due to COVID-19 virus: Code(s): U07.1 - COVID-19; J12.89 - Other viral pneumonia Status: Acute Assessment and Plan: The patient has COVID-19. He is getting Dexamethasone. He is on oxygen and supportive care. (4) Type 2 diabetes mellitus: Code(s): E11.9 - Type 2 diabetes mellitus without complications Status: Acute Assessment and Plan: He is getting Accu-Cheks and sliding-scale insulin (5) Hypothyroidism: Code(s): E03.9 - Hypothyroidism, unspecified Status: Acute Assessment and Plan: he is on levothyroxine (6) Hypertension: Code(s): I10 - Essential (primary) hypertension Status: Acute Assessment and Plan: blood pressure is doing okay (7) Erythropoietin deficiency anemia: Code(s): D63.1 - Anemia in chronic kidney disease Status: Acute Assessment and Plan: He is on EPO. Subjective Date/time seen: 02/10/20 12:35 Interval history: pt is sleepy. Short of breath. Not very interactive. On High-flow cannula and also a non-rebreather. Review of Systems Cardiovascular: Cardiovascular: Reports no additional cardiovascular complaints Respiratory: Respiratory: Reports no additional respiratory complaints Gastrointestinal: Gastrointestinal: Reports no additional gastrointestinal complaints Genitourinary: Genitourinary: Reports no additional male genitourinary complaints Exam Narrative: Exam Narrative: WDWN in ICU and on more oxygen. skin no rash head ncat lungs coarse bilaterally cor reg no rub abd BS+ nontender and soft ext no edema. bilateral below the knee amputation Objective Data Vital Signs Vital Signs: Vital Signs - 24 hr 02/09/20 14:00 02/09/20 16:00 02/09/20 18:00 Temperature 37.0 C Pulse Rate 65 75 74 Respiratory Rate 32 H 32 H 31 H Blood Pressure 140/70 159/80 H 149/74 H Pulse Oximetry 97 86 L 82 L 02/09/20 20:00 02/09/20 20:07 02/09/20 20:56 Temperature 36.7 C Pulse Rate 78 71 71 Respiratory Rate 31 H 31 H 35 H Blood Pressure 161/85 H Pulse Oximetry 83 L 96 02/09/20 21:15 02/09/20 21:26 02/09/20 21:30 Temperature 36.6 C Pulse Rate 76 77 84 Respiratory Rate 30 H Blood Pressure 159/95 H 170/89 H 129/84 Pulse Oximetry 97 02/09/20 21:45 02/09/20 22:00 02/09/20 22:15 Temperature Pulse Rate 83 84 91 Respiratory Rate Blood Pressure 138/75 107/70 111/82 Pulse Oximetry 02/09/20 22:21 02/09/20 22:30 02/09/20 22:45 Temperature Pulse Rate 69 101 H 107 H Respiratory Rate 45 H Blood Pressure 90/73 L 101/68 Pulse Oximetry 02/09/20 23:05 02/09/20 23:21 02/09/20 23:27 Temperature 36.8 C Pulse Rate 90 85 86 Respiratory Rate 45 H 35 H Blood Pressure 109/88 94/81 L Pulse Oximetry 95 02/09/20 23:47 02/09/20 23:51 02/10/20 00:00 Temperature 36.8 C 37.1 C Pulse Rat
--- NOTE | 2020-02-10 13:05 | WPDINTPN ---
Progress Note: A&P Assessment and Plan (1) Acute respiratory failure with hypoxia: Code(s): J96.01 - Acute respiratory failure with hypoxia Status: Acute Assessment and Plan: Acute Respiratory failure secondary to COVID-19 pneumonia, possible component of pulmonary edema from end-stage renal disease, atelectasis CXR shows persistent Diffuse lung disease with slight improvement, consistent with pneumonia and/or pulmonary edema and/or acute respiratory distress syndrome (ARDS) patient currently on 95% FiO2 and 50 liter/minute flow on airvo along with a non-rebreather mask ABG and PCXR reviewed and will repeat in am. continue dexamethasone patient has already received plasma not a candidate for Remdesivir monitor inflammatory markers patient is now DNR/DNI (2) Pneumonia due to COVID-19 virus: Code(s): U07.1 - COVID-19; J12.89 - Other viral pneumonia Status: Acute Assessment and Plan: see above (3) Encephalopathy: Code(s): G93.40 - Encephalopathy, unspecified Status: Acute Assessment and Plan: multifactorial. patient has baseline traumatic brain injury and has cognitive impairment and now worsen by medications and being sick. also delirium hold benzodiazepine patient currently on Precedex infusion will titrate (4) End-stage renal disease on hemodialysis: Code(s): N18.6 - End stage renal disease; Z99.2 - Dependence on renal dialysis Status: Acute Assessment and Plan: the patient is end-stage renal disease. patient was dialyzed last night but had to be stopped after 2 hours due to drop in pressure and bradycardia discussed with Dr. Tomlinson. Next session will be scheduled for tomorrow (5) Type 2 diabetes mellitus: Code(s): E11.9 - Type 2 diabetes mellitus without complications Status: Acute Assessment and Plan: Sliding scale and Levemir (6) Hypothyroidism: Code(s): E03.9 - Hypothyroidism, unspecified Status: Acute Assessment and Plan: he is on levothyroxine (7) Hypertension: Code(s): I10 - Essential (primary) hypertension Status: Acute Assessment and Plan: blood pressure is adequately controlled control with his current medications (8) Erythropoietin deficiency anemia: Code(s): D63.1 - Anemia in chronic kidney disease Status: Acute Assessment and Plan: secondary to end-stage renal disease He is on EPO. Additional Plan DVT prophylaxis - subcu heparin Stress ulcer prophylaxis - Pepcid Code Status - DNR/DNI. I spoke to patient's sister Rebekah Godinez yesterday by phone. she made patient DNR DNI. Our floor hand Carlos called her today and she is expressed some confusion regarding patient's code status. We requested her to come visit her brother and discuss in person to avoid any confusion over the phone.. Today, I met with patient's sister in presence of floor hand Carlos and skin care instructor to discuss medical decisions and level of care regarding patient's current condition. Patient has history of traumatic brain injury and is also encephalopathic is unable to participate. I updated her with patient's current condition, treatment plan, expected prognosis and different potential outcomes. after reviewing all information, she verbalized understanding of DNR DNI and agreed to keep the current stay Code status. We have also explained her option of comfort care and hospice if she is interested. At this time she wants to wait and see how he does for making further decision Total Critical Care Time -50 minutes Due to a high probability of clinically significant, life threatening deterioration, the patient required my highest level of preparedness to intervene emergently and I personally spent this critical care time directly and personally managing the patient. This critical care time included obtaining a history; examining the patient; pulse oximetry; orderi
[2020-02-10 13:25] LABS: Glucose Point of Care 197 (65-105)
--- NOTE | 2020-02-10 14:02 | PM.IMPN ---
Progress Note: A&P Assessment and Plan (1) Pneumonia due to COVID-19 virus: Code(s): U07.1 - COVID-19; J12.89 - Other viral pneumonia Status: Acute Assessment and Plan: with chronic renal failure not a candidate for antiviral. Day 6. Of dexamethasone. convalescent plasma was given too . (2) Acute respiratory failure with hypoxia: Code(s): J96.01 - Acute respiratory failure with hypoxia Status: Acute Assessment and Plan: . secondary to COVID pneumonia continue above treatment prognosis poor with new DNR status and no [facility] planned (3) End-stage renal disease on hemodialysis: Code(s): N18.6 - End stage renal disease; Z99.2 - Dependence on renal dialysis Status: Acute Assessment and Plan: . chronic hemodialysis Friday ,Only 2 hours of hemodialysis 02/08 due to hypotension. (4) Hypothyroidism: Code(s): E03.9 - Hypothyroidism, unspecified Status: Acute Assessment and Plan: continue thyroid replacement . (5) Hyperlipidemia: Code(s): E78.5 - Hyperlipidemia, unspecified Status: Acute Assessment and Plan: continue statin recheck LFTs . (6) Type 2 diabetes mellitus: Code(s): E11.9 - Type 2 diabetes mellitus without complications Status: Acute Assessment and Plan: . A1c only 7.1 but with dexamethasone sugars have risen and now in the 100s range with Levemir to 14 units Q 12 with sliding scale (7) Hypertension: Code(s): I10 - Essential (primary) hypertension Status: Acute Assessment and Plan: .bp trending up off losartan (8) Anemia: Code(s): D64.9 - Anemia, unspecified Status: Acute Assessment and Plan: . chronic disease with his chronic renal failure (9) Cognitive impairment: Code(s): R41.89 - Other symptoms and signs involving cognitive functions and awareness Status: Acute Assessment and Plan: chronic can worsened due to COVID pneumonia and respiratory failure (10) DVT prophylaxis: Code(s): Z29.9 - Encounter for prophylactic measures, unspecified Status: Acute Assessment and Plan: Heparin Q 8 hours Subjective Date/time seen: 02/10/20 14:02 Interval history: Date of service: 02/09 60yo male with hx of TBI and cognitive impairment, DM, and ESRD who is COVID+ here for increasing SOB. Worsening sob and hypoxia over night 02/07 and now max rx before mech vent but POA decided DNR Exam Narrative: Exam Narrative: T 38.8 162/84 92 26 95% flow rate 50 with FiO2 of 95% Gen - Tachypneic and unresponsive lying semi-recumbent in bed . with addition of non-rebreather Chest - inspiratory crackles appreciated in the flanks. CV - RRR S1/S2 Abd - Soft, ND. no guarding or rebound Ext - bilateral BKAs; stumps are clean; LUE fistula present Neuro - non responsive off sedation Psych - hard to assess Skin - Warm and dry Objective Data Vital Signs Vital Signs: Vital Signs - 24 hr 02/09/20 16:00 02/09/20 18:00 02/09/20 20:00 Temperature 37.0 C 36.7 C Pulse Rate 75 74 78 Respiratory Rate 32 H 31 H 31 H Blood Pressure 159/80 H 149/74 H 161/85 H Pulse Oximetry 86 L 82 L 83 L 02/09/20 20:07 02/09/20 20:56 02/09/20 21:15 Temperature 36.6 C Pulse Rate 71 71 76 Respiratory Rate 31 H 35 H 30 H Blood Pressure 159/95 H Pulse Oximetry 96 97 02/09/20 21:26 02/09/20 21:30 02/09/20 21:45 Temperature Pulse Rate 77 84 83 Respiratory Rate Blood Pressure 170/89 H 129/84 138/75 Pulse Oximetry 02/09/20 22:00 02/09/20 22:15 02/09/20 22:21 Temperature Pulse Rate 84 91 69 Respiratory Rate 45 H Blood Pressure 107/70 111/82 Pulse Oximetry 02/09/20 22:30 02/09/20 22:45 02/09/20 23:05 Temperature Pulse Rate 101 H 107 H 90 Respiratory Rate Blood Pressure 90/73 L 101/68 109/88 Pulse Oximetry
[2020-02-10 18:21] LABS: Glucose Point of Care 200 (65-105)
[2020-02-10 20:53] LABS: Glucose Point of Care 206 (65-105)
[2020-02-11] VITALS (20 sets, daily range): BP systolic 89–181; BP diastolic 26–100; PULSE 85–114; RESP 24–40; TEMP 36.8–37.7; O2SAT 90–100
[2020-02-11 04:08] LABS: Hematocrit 37.3 % (42.0-52.0); Hemoglobin 12.4 g/dL (14.0-18.0); Mean Corpuscular HGB Conc 33.2 g/dl (32-36); Mean Corpuscular Hemoglobin 34.2 pg (26-34); Mean Corpuscular Volume 102.8 fl (80-100); Mean Platelet Volume 10.3 fl (7.4-10.4); Platelet Count Result 293 k/mm3 (150-375); Red Blood Count 3.63 M/mm3 (4.6-6.20); Red Cell Distribution Width 14.9 % (11.5-14.5); White Blood Count 16.5 K/mm3 (4.5-10.0)
[2020-02-11 04:29] LABS: Alanine Aminotransferase 159 U/L (4-50); Albumin Level 3.8 g/dL (3.5-5.1); Alkaline Phosphatase 94 U/L (38-126); Anion Gap 21 mmol/L (8-16); Aspartate Amino Transferase 109 U/L (17-59); Calcium 8.4 mg/dL (8.4-10.2); Carbon Dioxide 26 mmol/L (22-30); Chloride 96 mmol/L (98-107); Estimated Glomerular Filt Rate 6; Glucose 230 mg/dL (75-110); Magnesium 3.3 mg/dL (1.6-2.3); Potassium 4.7 mmol/L (3.4-5.0); Sodium 143 mmol/L (137-145)
[2020-02-11 04:41] LABS: Blood Urea Nitrogen 134 mg/dL (9-20)
[2020-02-11] MEDS: HEPARIN SODIUM 5,000 UNITS/ML VIAL 5000 UNITS SUB-Q ×2 (06:00→10:01)
[2020-02-11 09:11] LABS: Lactate Dehydrogenase 1360 U/L (313-618)
[2020-02-11] MEDS: INSULIN ASPART (*BKC) 100 UNITS/ML SUB-Q (10:02)
[2020-02-11] MEDS: FAMOTIDINE 20 MG/2 ML VIAL IV PUSH (10:04)
[2020-02-11] MEDS: DEXAMETHASONE SOD PHOS INJ 4 MG/ML VIAL 6 MG IV PUSH (10:04)
[2020-02-11] MEDS: INSULIN DETEMIR 100 UNITS/ML 14 UNITS SUB-Q (10:05)
--- NOTE | 2020-02-11 10:59 | WPDINTPN ---
Progress Note: A&P Assessment and Plan (1) Acute respiratory failure with hypoxia: Code(s): J96.01 - Acute respiratory failure with hypoxia Status: Acute Assessment and Plan: Acute Respiratory failure secondary to COVID-19 pneumonia, possible component of pulmonary edema from end-stage renal disease, atelectasis CXR shows persistent Diffuse lung disease with slight improvement, consistent with pneumonia and/or pulmonary edema and/or acute respiratory distress syndrome (ARDS) patient currently on 100% FiO2 and 60 liter/minute flow on airvo along with a non-rebreather mask PCXR reviewed and will repeat in am. set waveform is poor hence will check ABG now continue dexamethasone patient has already received plasma not a candidate for Remdesivir monitor inflammatory markers patient is now DNR/DNI - see below (2) Pneumonia due to COVID-19 virus: Code(s): U07.1 - COVID-19; J12.89 - Other viral pneumonia Status: Acute Assessment and Plan: see above (3) Encephalopathy: Code(s): G93.40 - Encephalopathy, unspecified Status: Acute Assessment and Plan: multifactorial. patient has baseline traumatic brain injury and has cognitive impairment and now worsen by medications and being sick. also delirium patient off all sedatives (4) End-stage renal disease on hemodialysis: Code(s): N18.6 - End stage renal disease; Z99.2 - Dependence on renal dialysis Status: Acute Assessment and Plan: the patient is end-stage renal disease. patient was dialyzed last night but had to be stopped after 2 hours due to drop in pressure and bradycardia again today he decompensated after closed in our on hemodialysis and dialysis had to be stopped (5) Type 2 diabetes mellitus: Code(s): E11.9 - Type 2 diabetes mellitus without complications Status: Acute Assessment and Plan: Sliding scale and Levemir (6) Hypothyroidism: Code(s): E03.9 - Hypothyroidism, unspecified Status: Acute Assessment and Plan: he is on levothyroxine (7) Hypertension: Code(s): I10 - Essential (primary) hypertension Status: Acute Assessment and Plan: blood pressure is adequately controlled control with his current medications (8) Erythropoietin deficiency anemia: Code(s): D63.1 - Anemia in chronic kidney disease Status: Acute Assessment and Plan: secondary to end-stage renal disease He is on EPO. (9) Dietary counseling and surveillance: Code(s): Z71.3 - Dietary counseling and surveillance Status: Acute Assessment and Plan: plan was to place NG tube post dialysis start him on Nepro tube feeds but since patient has decompensated will hold at this time Additional Plan DVT prophylaxis - subcu heparin Stress ulcer prophylaxis - Pepcid Code Status - DNR/DNI. yesterday I had a meeting with patient's sister in presence of development specialist Carlos and post anesthesia care unit nurse to discuss medical decisions and level of care regarding patient's current condition. patient was made DNR DNI at that time. We also explained her option of comfort care and hospice if she is interested. At this time she wanted to wait and see how he does before making further decision. After today's event I called her back on the phone and updated her with events. She is considering comfort care but wants to see him before making decision she said she will be on her way along with the sister to see patient. She understands the grave prognosis and critical nature of patient's illness and is now and retaining idea of making him comfort care and only using palliative measures to relieve his respiratory distress and pain. I will meet with her when she comes to see him Total Critical Care Time -40 minutes Due to a high probability of clinically significant, life threatening deterioration, the patient required my highest level of preparedness
[2020-02-11 11:20] LABS: Alveolar/Arterial O2 Gradient 606.1 mmHg; Base Excess ABG -2.7 mEq/l (+/-2.0); Carboxyhemoglobin 0.2 % THb (0-2.0); Device HIGH FLOW THERAPY; Fractional Inspired Oxygen 100 %; HCO3 ABG 20.7 mEq/l (22.0-26.0); Methemoglobin ABG 0.2 %THb (0-1.5); Modified Allen's Test Pass; Oxygen Content ABG 20.5 %vol (16.0-22.0); Oxygen Saturation ABG 95.4 % (95.0-100.0); Oxyhemoglobin 92.2 % THb (90.0-100.0); PCO2 ABG 32.4 mmHg (35.0-45.0); PO2 ABG 74.5 mmHg (80.0-100.0); PO2 FiO2 Ratio Arterial Blood 0.75 %; Reduced Hemoglobin 7.4 %THb (0-5.0); Site Drawn RIGHT RADIAL; Total Hemoglobin 15.8 g/dL (12.0-18.0); pH ABG 7.423 (7.350-7.450)
--- NOTE | 2020-02-11 11:21 | PCNFU ---
Nutrition Follow-Up Complete: Nutrition Diagnosis: Suboptimal oral intake related to multiple medical issues as evidenced by recorded intakes of just above 50% of meals since admission. Nutrition Goal: Patient to consume 75% of meals/supplements or greater. Goal not met. MD ordered NG tube placement with initiation of 240mL Nepro Shake QID. This will provide 1700kcal and 76g protein daily. Patient has been unable to take oral diet x 3 days and has been unable to follow commands. Last recorded weight is 64.8 kg which is down from last review. -I/O. Undergoing hemodialysis at this time. Bowel Motility: BM x 1 on 02/10/20. Labs Reviewed: Hgb (12.4), Hct (37.3), Glu (230), BUN (134), Cr (9.20) Meds Noted: Lipitor, Decadron, Precedex, Colace, Retacrit, Drisdol, Pepcid, Heparin, Novolog, Levemir, Synthroid, Cozaar Additional Notes: No skin breakdown documented. Will continue to monitor with new goal of patient to meet estimated nutritional needs. Nutrition Monitoring and Evaluation: Follow up every Friday/Friday. Follow daily in ICU rounds.
--- NOTE | 2020-02-11 11:28 | PM.EVENT ---
Event Note Event Note Event Note: Rebekah called back and told me that she does not want a see patient at this stage. She feels that patient is not interactive she will do by looking at him is cry. She wants us to keep him comfortable and pain-free. she verbalized understanding that once put on comfort care we will discontinue therapeutic measures and focus on me keeping comfortable with anxiolytics and and pain medication and he will eventually pass. She requested that we give her a call if and when patient passes away. I will use opioids, anxiolytics and other agents on as needed basis to promote comfort and discontinue all medical therapy, lab testing and invasive monitoring.
[2020-02-11] MEDS: MORPHINE SULFATE (*CRX) 4 MG/ML INJ IV PUSH (11:39)
[2020-02-11] MEDS: LORazepam INJ (*CRX) 2 MG/ML VIAL IV PUSH (11:40)
[2020-02-11 11:46] LABS: Blood Urea Nitrogen 142 mg/dL (9-20)
[2020-02-11 11:58] LABS: Ferritin > 2000.00 ng/mL (11.1-264)
--- NOTE | 2020-02-12 18:39 | PM.DDS ---
Discharge Sum: Prov Provider Primary care physician: Melly Michel MD Admitting provider: Jluis Duarte MD Consults: 02/05/20 12:40 Consult to Physician Routine Comment: Consulting Provider: Edy Tomlinson scallop cutter machine/MD group to consult: nephrology Reason for consultation: nephrology Has provider been notified: Yes Discharge Sum: Diag Contributing Factors (1) Pneumonia due to COVID-19 virus: (2) Acute respiratory failure with hypoxia: (3) End-stage renal disease on hemodialysis: (4) Hypothyroidism: (5) Hyperlipidemia: (6) Type 2 diabetes mellitus: (7) Hypertension: (8) Anemia: (9) Cognitive impairment: Discharge Sum: Summary Date and Time Date of admission: 02/05/20 13:18 Summary Details: 60-year-old white male with traumatic brain injury, chronic renal failure on dialysis, admitted with respiratory failure and COVID pneumonia. Treated with Decadron and convalescent plasma but no remdesivir with his renal failure. He had a steady downhill course despite treatment and his POA decided against mechanical ventilation. Despite high-flow oxygen and non-rebreather he continued to be hypoxic and succumbed to his illness a.m. of the 6th Cause of respiratory failure secondary to COVID pneumonia Additional Data Attending physician: Moe Mack MD
== END 2020-02-11 12:03 | disposition expired | DRG 137 ==
LOC: ANHED 12:38 → ANHICU 12:48
PROVIDERS: Emergency Medicine Emergency Medical Services; Internal Medicine; Internal Medicine Nephrology; Physician Assistant; Admitting Provider Family Medicine; Emergency Provider Emergency Medicine; PCP Family Medicine; Visit Provider Internal Medicine
DX: U07.1 COVID-19 (principal); J12.89 Other viral pneumonia; J96.01 Acute respiratory failure with hypoxia; E11.22 Type 2 diabetes mellitus with diabetic chronic kidney disease; I13.2 Hypertensive heart and chronic kidney disease with heart failure and with stage 5 chronic kidney disease, or end stage renal disease; I50.30 Unspecified diastolic (congestive) heart failure; N18.6 End stage renal disease; D63.1 Anemia in chronic kidney disease; Z99.2 Dependence on renal dialysis; E11.42 Type 2 diabetes mellitus with diabetic polyneuropathy; E11.51 Type 2 diabetes mellitus with diabetic peripheral angiopathy without gangrene; E78.5 Hyperlipidemia, unspecified; E03.9 Hypothyroidism, unspecified; K21.9 Gastro-esophageal reflux disease without esophagitis; G93.40 Encephalopathy, unspecified; Z66 Do not resuscitate; R41.89 Other symptoms and signs involving cognitive functions and awareness; Z87.820 Personal history of traumatic brain injury; Z86.73 Personal history of transient ischemic attack (TIA), and cerebral infarction without residual deficits; Z87.891 Personal history of nicotine dependence; Z89.511 Acquired absence of right leg below knee; Z89.512 Acquired absence of left leg below knee
CPT/HCPCS: 36415; 36430; 36600; 71045; 80048; 80053; 80069; 80076; 82375; 82728; 82805; 83036; 83050; 83605; 83615; 83735; 84443; 84520; 85025; 85027; 85380; 85610; 85730; 86140; 86900; 86901; 87040; 93005; 96374; 99285; A9270; G0257; G0378; G0379; J0131; J1100; J1644; J1815; J2060; J2250; J2270; J7030; J7050; P9059; Q5106